=== PATIENT | male | born 1970 | race Caucasian/White ===

== ENCOUNTER 2020-01-25 08:51 | Outpatient (CLI) | payer OTHER, SELFPAY ==
--- NOTE | 2020-01-25 08:54 | ECHO_ITS ---
Patient Info Name: Malvin Paredes Age: 49 years : 1970 Gender: Male Ht: 75 in Wt: 320 lbs BSA: 2.83 m2 HR: 84 bpm BP: 141 / 98 mmHg Technical Quality: Good Exam Date: 01/25/2020 9:23 AM Exam Location: [facility] Patient Status: Outpatient Admit Date: 01/25/2020 Staff Ordering Physician: Edwin Rubio DO Adjustment Clerk: Rommel Smith, [place], RT Attending Provider: Edwin Rubio DO Referring Physician: Ramiro DANIEL; Exam Type: CA echo doppler color flow Study Info Indications I35.8 - Other nonrheumatic aortic valve disorders Complete two-dimensional, color flow and Doppler transthoracic echocardiogram is performed. Strain analysis performed. Summary 1. Complete two-dimensional, color flow and Doppler transthoracic echocardiogram is performed. 2. Left ventricular systolic function is preserved, estimated at 50-55%. 3. Left ventricular chamber dimension is normal. 4. There is mildly increased left ventricular wall thickness. 5. The left ventricular diastolic function is normal. 6. E/e' 7 is not elevated. 7. Global longitudinal strain is abnormal at -14.0%. 8. There is mild aortic valve sclerosis. 9. The mitral valve has mildly calcified annulus. 10. There is mild mitral valve regurgitation. 11. There is trace tricuspid valve regurgitation. Left Ventricle E/e' 7 is not elevated. Global longitudinal strain is abnormal at -14.0%. Left ventricular systolic function is preserved, estimated at 50-55%. Left ventricular chamber dimension is normal. There is mildly increased left ventricular wall thickness. The left ventricular diastolic function is normal. Right Ventricle Right ventricular chamber dimension is normal. Right ventricular systolic function is normal. Left Atria Left atrial chamber dimension is normal. Right Atria Right atrial chamber dimension is normal. Aortic Valve The aortic valve is trileaflet. There is mild aortic valve sclerosis. There is no aortic valve stenosis. There is no aortic valve regurgitation. Pulmonic Valve There is no pulmonic regurgitation. Mitral Valve The mitral valve has mildly calcified annulus. There is no mitral valve stenosis. There is mild mitral valve regurgitation. Tricuspid Valve RVSP is not calculated due to an inadequate TR jet. There is trace tricuspid valve regurgitation. Pericardium/Pleural There is no pericardial effusion. Inferior Vena Cava Normal inferior vena cava with >50% collapse upon inspiration consistent with normal right atrial pressure, 5 mmHg. Aorta The aortic root size at the sinus of Valsalva is normal. Left Ventricular Outflow Tract Name Value Normal LVOT 2D LVOT Diameter 2.2 cm LVOT Doppler LVOT Peak Gradient 5 mmHg LVOT Mean Gradient 2 mmHg LVOT VTI 21 cm LVOT VTI/AV VTI Ratio 0.9 LVOT Stroke Volume 80 ml LVOT CO 5.0 l/min LVOT CI 1.8 l/min/m2 Mitral Valve -----
--- NOTE | 2020-01-25 08:55 | EST_ITS ---
Patient Info Name: Malvin Paredes Age: 49 years : 1970 Gender: Male Ht: 75 in Wt: 320 lbs BSA: 2.83 m2 Heart Rhythm: Sinus Rhythm Exam Date: 01/25/2020 10:00 AM Exam Location: [facility] Patient Status: Outpatient Admit Date: 01/25/2020 Staff Ordering Physician: Edwin Rubio DO Attending Provider: Edwin Rubio DO Exercise Technologist: Rommel Smith RDCS, RT Nurse: MADHAVI KHAN Exam Type: CA stress test treadmill Study Info Indications R07.89 - Other chest pain An exercise stress test was performed. Summary 1. Maximal treadmill stress ECG study achieving 89% of age predicted maximal heart rate, 8.6 METS at peak exercise with below average exercise capacity for age. 2. Non diagnostic ECG response to exercise which did not meet strict criteria for reversible myocardial ischemia. 3. No chest discomfort with stress test. 4. Occasional stress-induced PVCs. 5. [place] treadmill score +6 indicating low risk for adverse cardiovascular events over the next 5 years. Protocol: [facility] Stress ECG Details Stage: REST Duration (min): 1 min : 13 sec Speed (mph): 0.0 Grade (%): 0 HR (bpm): 71 SBP (mmHg): 141 DBP (mmHg): 98 METS: --- Stage: REST Duration (min): 3 min : 54 sec Speed (mph): 0.0 Grade (%): 0 HR (bpm): 78 SBP (mmHg): 141 DBP (mmHg): 98 METS: --- Stage: STAGE 1 Duration (min): 1 min : 0 sec Speed (mph): 1.7 Grade (%): 10 HR (bpm): 111 SBP (mmHg): 141 DBP (mmHg): 98 METS: --- Stage: STAGE 1 Duration (min): 2 min : 0 sec Speed (mph): 1.7 Grade (%): 10 HR (bpm): 117 SBP (mmHg): 141 DBP (mmHg): 98 METS: --- Stage: STAGE 1 Duration (min): 3 min : 0 sec Speed (mph): 1.7 Grade (%): 10 HR (bpm): 120 SBP (mmHg): 208 DBP (mmHg): 74 METS: --- Stage: STAGE 2 Duration (min): 1 min : 0 sec Speed (mph): 2.5 Grade (%): 12 HR (bpm): 132 SBP (mmHg): 208 DBP (mmHg): 74 METS: --- Stage: STAGE 2 Duration (min): 2 min : 0 sec Speed (mph): 2.5 Grade (%): 12 HR (bpm): 134 SBP (mmHg): 198 DBP (mmHg): 63 METS: --- Stage: STAGE 2 Duration (min): 3 min : 0 sec Speed (mph): 2.5 Grade (%): 12 HR (bpm): 145 SBP (mmHg): 198 DBP (mmHg): 63 METS: --- Stage: STAGE 3 Duration (min): 0 min : 51 sec Speed (mph): 3.4 Grade (%): 14 HR (bpm): 154 SBP (mmHg): 197 DBP (mmHg): 90 METS: --- Stage: RECOVERY Duration (min): 0 min : 8 sec Speed (mph): 1.5 Grade (%): 0 HR (bpm): 153 SBP (mmHg): 197 DBP (mmHg): 90 METS: --- Stage: RECOVERY Duration (min): 1 min : 8 sec Speed (mph): 0.0 Grade (%): 0 HR (bpm): 126 SBP (mmHg): 197 DBP (mmHg): 90 METS: --- Stage: RECOVERY Duration (min): 2 min : 8 sec Speed (mph): 0.0 Grade (%): 0 HR (bpm): 98 SBP (mmHg): 197 DBP (mmHg):
== END 2020-01-25 08:52 | disposition home or self-care (01) ==
PROVIDERS: PCP Family Medicine; Visit Provider Internal Medicine Cardiovascular Disease
DX: R07.9 Chest pain, unspecified (principal); I34.1 Nonrheumatic mitral (valve) prolapse
CPT/HCPCS: 93017; 93306

== ENCOUNTER 2021-05-02 10:37 | Outpatient (CLI) | payer OTHER, SELFPAY ==
--- NOTE | ~2021-05-02 | XR_ITS ---
XR ankle LT min 3V DATE: 05/02/2021 10:51 INDICATION: Lateral ankle pain. No injury. TECHNIQUE: 4 views COMPARISON: None FINDINGS: There is moderate lateral soft tissue swelling. No fracture or dislocation of the ankle or disruption of the ankle mortise is detected. No periosteal reaction or bone destruction. IMPRESSION: Moderate lateral soft tissue swelling Reviewed, dictated and finalized at location B. NG CRAFTSPERSON
[2021-05-02 19:08] LABS: Hematocrit 44.2 % (42.0-52.0); Hemoglobin 14.8 g/dL (14.0-18.0); Mean Corpuscular HGB Conc 33.5 g/dl (32-36); Mean Corpuscular Hemoglobin 30.8 pg (26-34); Mean Corpuscular Volume 91.9 fl (80-100); Mean Platelet Volume 8.3 fl (7.4-10.4); Platelet Count Result 225 k/mm3 (150-375); Red Blood Count 4.81 M/mm3 (4.6-6.20); Red Cell Distribution Width 12.9 % (11.5-14.5); White Blood Count 8.9 K/mm3 (4.5-10.0)
[2021-05-02 19:22] LABS: Alanine Aminotransferase 27 U/L (4-50); Albumin Level 4.3 g/dL (3.5-5.1); Alkaline Phosphatase 77 U/L (38-126); Anion Gap 8 mmol/L (8-16); Aspartate Amino Transferase 27 U/L (17-59); Bilirubin,Total 0.5 mg/dL (0.2-1.3); Blood Urea Nitrogen 18 mg/dL (9-20); Calcium 9.6 mg/dL (8.4-10.2); Carbon Dioxide 27 mmol/L (22-30); Chloride 103 mmol/L (98-107); Cholesterol 239 mg/dL (0-200); Estimated Glomerular Filt Rate > 60; Glucose 120 mg/dL (65-110); HDL Direct 38 mg/dL; Potassium 4.3 mmol/L (3.4-5.0); Sodium 138 mmol/L (137-145); Triglycerides 286 mg/dL (<150)
[2021-05-02 19:29] LABS: Hemoglobin A1C 5.7 % (<5.7)
[2021-05-02 19:33] LABS: LDL Cholesterol Direct 173 mg/dL
== END 2021-05-02 10:38 | disposition home or self-care (01) ==
PROVIDERS: PCP Family Medicine; Visit Provider Family Medicine
DX: E78.5 Hyperlipidemia, unspecified (principal); E66.9 Obesity, unspecified; I10 Essential (primary) hypertension; I25.10 Atherosclerotic heart disease of native coronary artery without angina pectoris; M25.572 Pain in left ankle and joints of left foot; M25.473 Effusion, unspecified ankle; M79.89 Other specified soft tissue disorders
CPT/HCPCS: 36415; 73610; 80053; 80061; 83036; 85027